=== PATIENT | male | born 1985 | race Caucasian/White ===

== ENCOUNTER 2021-10-01 07:23 | Emergency (ER) | payer OTHER ==
[2021-10-01] MEDS ORDERED: NORCO 5-325 TA1 EACH PO (09:10)
[2021-10-01] MEDS ORDERED: NAPROXEN500 MG PO (09:10)
== END 2021-10-01 09:39 | disposition home or self-care (01) ==
LOC: FER 07:23
DX: S22.42XA Multiple fractures of ribs, left side, initial encounter for closed fracture (principal); S20.311A Abrasion of right front wall of thorax, initial encounter; S05.11XA Contusion of eyeball and orbital tissues, right eye, initial encounter; F17.210 Nicotine dependence, cigarettes, uncomplicated; Y04.0XXA Assault by unarmed brawl or fight, initial encounter
CPT/HCPCS: 71250

== ENCOUNTER 2021-10-12 22:35 | Emergency (ER) | payer OTHER ==
[~2021-10-12 22:35] MED LIST: NAPROXEN500 MG PO; NORCO 5-325 TA1 EACH PO
[2021-10-13] MEDS ORDERED: LIFEMS NALO2 MG/2 ML IN (01:56)
== END 2021-10-13 02:20 | disposition home or self-care (01) ==
LOC: FER 22:35
DX: T40.2X1A Poisoning by other opioids, accidental (unintentional), initial encounter (principal); R41.82 Altered mental status, unspecified; F17.200 Nicotine dependence, unspecified, uncomplicated
CPT/HCPCS: 93005; J2405; J2550; J7030